=== PATIENT | male | born 2000 | race Caucasian/White ===

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

== ENCOUNTER → 2023-02-28 15:41 | Outpatient (BNVA) | payer MEDICAID, SELFPAY | PROVIDERS: PCP Family Medicine; Visit Provider Nurse Practitioner Family | DX: L03.115 Cellulitis of right lower limb (principal) | CPT/HCPCS: 87070; 87075; 87077; 87184; 87205 ==

== ENCOUNTER 2023-03-02 19:31 | Emergency (ER) | payer SELFPAY ==
[2023-03-02 19:49] VITALS: BP 125/70; PULSE 91; RESP 14; TEMP 36.9; O2SAT 100; BMI 21.7
--- NOTE | 2023-03-02 20:14 | ED_ITS ---
HPI - Skin/Abscess/Foreign Bdy General: Chief complaint: Skin/Abscess/Foreign Body Stated complaint: Spider Bite Time Seen by Provider: 03/02/23 19:58 History of Present Illness: 22-year-old male patient comes in today for concerns of redness to the right lower leg. Patient has been being treated for an infected wound which was thought to be a spider bite to the right lower leg. On review of the photos that mother showed me it started as a pustule to the calf of the right lower leg. Patient then went to the clinic and was started on Bactrim and mupirocin ointment and was given a dose of Rocephin. Patient had gone back the second day and was given a second dose of Rocephin and continued on antibiotic. On the third day patient noticed some streaking from the wound and returned again to the clinic and was given a dose of ceftaz and the antibiotic was changed from Bactrim to Augmentin. Patient came in today concerned of swelling and redness to the lower leg. Associated symptoms: Deny fever(s) or vomiting Review of Systems Const: Denies: fever(s) Card: Denies: chest pain Resp: Denies: dyspnea GI: Denies: vomiting Skin/Breast: Reports: erythema PFSH ED PFSH: Social History Smoking and tobacco status: never smoked Physical Exam Const: COMMON NORMALS: alert HENMT: COMMON NORMALS: normocephalic HEAD & SCALP: normocephalic Neck/C-Spine: COMMON NORMALS: full ROM Resp: COMMON NORMALS: normal respiratory effort Cardio: COMMON NORMALS: regular rate RATE: regular rate Back/Pelvis: COMMON NORMALS: thoracic and lumbar spine normal to inspection Extremity: RIGHT LOWER EXTREMITY: Yes lower leg (Mild redness, no streaking, darkened wound) Right lower leg: Yes inspection, Yes palpation and Yes neurovascular exam Neuro: SENSORIUM/ORIENTATION: Yes alert Skin: NARRATIVE SKIN EXAM: Healing wound to the right lower leg Course Vital Signs: Vital signs: Vital Signs Temperature 98.5 F 03/02/23 19:49 Pulse Rate 91 03/02/23 19:49 Respiratory Rate 16 03/02/23 20:30 Blood Pressure 125/70 03/02/23 19:49 Pulse Oximetry 100 03/02/23 20:30 Oxygen Delivery Me thod Room Air 03/02/23 20:30 MDM - Skin/Abscess/Foreign Bdy Medicial Decision Making 22-year-old male patient comes in today for concerns of a worsening wound to the right lower extremity. On exam I see a healing wound with no pustule or drainage from it. Palpation of the surrounding area notes some mild induration but no fluctuance or signs of abscess. Patient does have some mild redness to the lower extremity but good pulses and negative Homans' sign. Differential diagnosis includes abscess, cellulitis, DVT, sepsis. Laboratory values were unremarkable. No signs of severe illness was noted. No signs of DVT was noted. CBC showed a 7.3 white count. CRP was 12. Review of the culture report at this time noted some gram-negative rods. Patient was given 2 g of ceftaz IV. Patient will be continued on Augmentin and added back Bactrim until complete. Recommended home and elevate extremity drink plenty of water and follow-up for worsening symptoms such as high fever greater than 100.4, inability to hold fluids down, or new concerns. Lab Data 03/02/23 20:34 03/02/23 20:34 Laboratory Results WBC 7.3 10^3/uL (4.5-13.0) 03/02/23 20: RBC 4.71 10^6/uL (4.1-5.3) 03/02/23 20:34 Hgb 13.5 g/dL (11.7-16.6) 03/02/23 20: Hct 39.4 % (42.0-52.0) L 03/02/23: MCV 83.7 fl (80-94) 03/02/23 20: MCH 28.7 pg (28.0-34.0) 03/02/23 20: MCHC 34.3 g/dL (30.0-36.0) 03/02/23: RDW 12.2 % (12.1-15.1) 03/02/23 20:34 Plt Count 193 10^3/cmm (130-400) 03/02/23 20: MPV 9.8 fL (7.4-10.4) 03/02/23: Neut % (Auto) 59.4 % 03/02/23 20:34 Lymph % (Auto) 31.7 % 03/02/23 20:34 Atkinson % (Auto) 6.4 % 03/02/23 20:34 Eos % (Auto) 1.8 % 03/02/23 20:34 Baso % (Auto) 0.4 % 03/02/23 20:34 Neut # (Auto) 4.33 10^3/uL (1.8-8.0) 03/02/23 20:34 Lymph # (Auto) 2.3 10^3/uL (1.5-6.5) 03/02/23 20:34 Atkinson # (Auto) 0.5 10^3/uL (0.2-0.9) 03/02/23 20:34 Eos # (Auto) 0.1 10^3/uL (0.0-0.8) 03/02/23 20:34 Baso # (Auto) 0.0 10^3/uL (0.0-0.1) 03/02/23 20:34 Nucleated RBC % (auto) 0 % 03/02/23 20:34 Nucleated RBCs # 0.0 /100WBC 03/02/23 20:34 Sodium 134 mmol/L (136-145) L 03/02/23 20:34 Potassium 4.1 mmol/L (3.5-5.1) 03/02/23 20:34 Chloride 101 mmol/L (98-107) 03/02/23 20:34 Carbon Dioxide 27 mmol/L (22-29) 03/02/23 20:34 Anion Gap 10.1 (5-19) 03/02/23 20:34 BUN 12 mg/dL (6-20) 03/02/23 20:34 Creatinine 1.1 mg/dL (0.7-1.2) 03/02/23 20:34 GFR Calculation 85.3 mL/min (90-130) L 03/02/23 20:34 Glucose 88 mg/dL (65-115) 03/02/23 20:34 Calculated Osmolality 277 mOsm/kg (285-295) L 03/02/23 20:34 Calcium 9.1 mg/dL (8.5-10.5) 03/02/23 20:34 C-Reactive Protein 12.0 mg/L (0.0-4.9) H 03/02/23 20:34 Discharge Plan Discharge Patient Disposition: Home Clinical Impression: Cellulitis of right lower extremity Condition: Stable Prescriptions: No Action sulfamethoxazole-trimethoprim [Bactrim DS] 800-160 mg tablet 1 tab PO BID 10 Days Qty: 20 0RF mupirocin 2 % ointment 1 applic topical TID Qty: 22 0RF amoxicillin-pot clavulanate 875-125 mg tablet 1 tab PO BID Qty: 20 0RF Discharge Orders: Discharge ED (Routine); Ordered 03/02/23 Ordered By: Juan José Hicks Referrals: Lory Boateng FNP [Primary Care Provider] - Discharge Diet: Usual diet Discharge Activity: Increase activity as tolerated Patient Instructions: Cellulitis (ED) Activity Restrictions/Additional Instructions: Elevate extremity as much as possible to help with swelling and redness. Take antibiotics as directed. Follow-up with primary care in 3 to 5 days for recheck. Return to ER for worsening symptoms such as high fever greater than 100.4, inability to hold fluids down, increasing swelling and redness in the lower extremity. Coding Level of Care Code ED [employer] Supervisor for Teerza Couch
[2023-03-02 20:30] VITALS: RESP 16; O2SAT 100
[2023-03-02 20:40] LABS: Basophils % 0.4 %; Eosinophils # 0.1 10^3/uL (0.0-0.8); Eosinophils % 1.8 %; Hematocrit 39.4 % (42.0-52.0); Hemoglobin 13.5 g/dL (11.7-16.6); Lymphocytes # 2.3 10^3/uL (1.5-6.5); Lymphocytes % 31.7 %; Mean Corpuscular HGB Conc 34.3 g/dL (30.0-36.0); Mean Corpuscular Hemoglobin 28.7 pg (28.0-34.0); Mean Corpuscular Volume 83.7 fl (80-94); Mean Platelet Volume 9.8 fL (7.4-10.4); Monocytes # 0.5 10^3/uL (0.2-0.9); Monocytes % 6.4 %; Neutrophils # 4.33 10^3/uL (1.8-8.0); Neutrophils % 59.4 %; Nucleated Red Blood Cells % 0 %; Platelet Count 193 10^3/cmm (130-400); Red Blood Count 4.71 10^6/uL (4.1-5.3); Red Cell Distribution Width 12.2 % (12.1-15.1); White Blood Count 7.3 10^3/uL (4.5-13.0)
[2023-03-02 20:58] LABS: Anion Gap 10.1 (5-19); Blood Urea Nitrogen 12 mg/dL (6-20); Calcium 9.1 mg/dL (8.5-10.5); Carbon Dioxide 27 mmol/L (22-29); Chloride 101 mmol/L (98-107); Glomerular Filtration Rate 85.3 mL/min (90-130); Glucose 88 mg/dL (65-115); Osmolality Calculated 277 mOsm/kg (285-295); Potassium 4.1 mmol/L (3.5-5.1); Sodium 134 mmol/L (136-145)
[2023-03-02] MEDS: cefTAZidime 2,000 MG in sodium chloride 0.9% (plus) 50 ML 150 MG IV (21:01)
== END 2023-03-02 21:38 | disposition home or self-care (01) ==
PROVIDERS: Emergency Provider Nurse Practitioner Family; PCP Nurse Practitioner Family
DX: L03.115 Cellulitis of right lower limb (principal)
CPT/HCPCS: 80048; 85025; 86140; 99284; J0713

== ENCOUNTER 2024-07-04 11:39 | Emergency (ER) | payer SELFPAY ==
[2024-07-04 11:49] VITALS: BP 152/62; PULSE 84; RESP 17; TEMP 36.7; O2SAT 99; BMI 20.5
--- NOTE | 2024-07-04 11:58 | ED_ITS ---
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 It is rather shallow its only superficial soft tissue. Unsure of last tetanus shot. Related Data Previous Rx's Medication Instructions Recorded mupirocin 2 % topical ointment 1 applic topical BID #15 grams 07/04/24 Allergies Allergy/AdvReac Type Severity Reaction Status Date / Time No Known Allergies Allergy Verified 03/01/23 16:02 Review of Systems Skin/Breast: Reports: other (Avulsion right index fingertip) [facility] ED PFSH: Social History Smoking and tobacco/nicotine status: never used tobacco/nicotine Physical Exam Skin: OTHER: Avulsion right index finger. Approximately 5 mm x 3 mm. Superficial does not involve any deep tissue. Course Vital Signs: Vital signs: Vital Signs Temperature 98.1 F 07/04/24 11:49 Pulse Rate 70 07/04/24 14:01 Respiratory Rate 17 07/04/24 11:49 Blood Pressure 148/60 07/04/24 14:01 Pulse Oximetry 99 07/04/24 14:01 MDM - Extremity (Nontraumatic) Medical Decision Making Oozing controlled in the fingertip with direct pressure dressing applied. Tetanus updated given Ancef discharged home on topical antibiotic ointment twice daily. Follow-up if has any signs of infection. Lab Data I reviewed the patient's lab results. No radiology studies performed this visit Discharge Plan Discharge Patient Disposition: Home Clinical Impression: Fingertip avulsion Condition: Stable Prescriptions: New mupirocin 2 % ointment 1 applic topical BID Qty: 15 0RF Discharge Orders: Discharge ED (Routine); Ordered 07/04/24 Ordered By: Beny Shi Referrals: Lory Boateng FNP [Primary Care Provider] - Discharge Activity: Resume usual activity Patient Instructions: Opioid Safety, Pain Management Activity Restrictions/Additional Instructions: Thank you for choosing [facility] for your healthcare needs today. It is very important that you follow up as instructed or that you return to the Emergency Department should you have concerns or if your condition changes or worsens in any way. You are seen in the emergency room after an avulsion to the tip of the right index finger. Apply topical antibiotic ointment to the wound twice a day change dressing keep wound covered when you are active. Follow-up with your primary care doctor. Coding Level of Care Code ED Custodial Manager for Tereza Couch
[2024-07-04] MEDS: tetanus-dipt-pertussis 0.5 mL SDV IM (12:10)
[2024-07-04] MEDS: ceFAZolin 1,000 MG in water for injection-sterile 2.5 ML 999 MG IM (12:11)
[2024-07-04] MEDS: mupirocin oint 22 gm 1 APPLIC TOPICAL (13:51)
[2024-07-04 14:01] VITALS: BP 148/60; PULSE 70; O2SAT 99
== END 2024-07-04 14:02 | disposition home or self-care (01) ==
PROVIDERS: Emergency Provider Family Medicine; PCP Nurse Practitioner Family
DX: S61.200A Unspecified open wound of right index finger without damage to nail, initial encounter (principal); W45.8XXA Other foreign body or object entering through skin, initial encounter
CPT/HCPCS: 90471; 90715; 96372; 99284; J0690